=== PATIENT | female | born 1980 | race Caucasian/White ===

== ENCOUNTER 2017-01-02 02:17 | Emergency (ER) | payer MEDICAID ==
[~2017-01-02] VITALS: Ht 149.9 cm; Wt 77.1 kg
--- NOTE | 2017-01-02 02:17 | NUR ---
Patient was BIB [place] [facility] at this time.
[2017-01-02 02:20] VITALS: BP 166/123
--- NOTE | 2017-01-02 02:35 | NUR ---
Patient to bed 07. [place] [facility] at bedside.
--- NOTE | 2017-01-02 02:49 | NUR ---
Dr. Man evaluating patient at bedside.
[2017-01-02 02:50] VITALS: BP 166/123
--- NOTE | 2017-01-02 02:56 | NUR ---
PATIENT BIB [place] [facility] PRESENTS TO ED WITH HIGH BLOOD PRESSURE . PT STATES SHE IS CURRENTLY 19 WEEKS AND HAS HX OF ECLAMPSI AND PREECLAMPSIA . DENIES N/V/D; SKIN IS PINK/WARM/DRY; AAOX4 WITH EVEN AND STEADY GAIT; LUNGS CLEAR BL; HR EVEN AND REGULAR; PT DENIES ANY FEVER, CP, SOB, OR COUGH AT THIS TIME; PATIENT STATES PAIN OF 0/10 AT THIS TIME; VSS; PATIENT POSITIONED FOR COMFORT; HOB ELEVATED; BEDRAILS UP X2; BED DOWN. ER MD MADE AWARE OF PT STATUS.
--- NOTE | 2017-01-02 02:59 | NUR ---
LAB AT BEDSIDE.
[2017-01-02] MEDS ORDERED: METHYLDOPA 250 MG TAB PO ONE (03:05)
--- NOTE | 2017-01-02 03:14 | NUR ---
WAITING FOR MEDICATION TO BE BROUGHT BY CRYPTOLOGIST AT THIS TIME. ER PYXIS OUT OF MED
[2017-01-02] MEDS ORDERED: METHYLDOPA 250 MG TAB ONE (03:23)
[2017-02-13] MEDS ORDERED: PNV-DHA1 SGL PO (22:57)
== END 2017-01-02 03:14 ==
LOC: MED 02:17
DX: Z02.89 Encounter for other administrative examinations (principal); O16.1 Unspecified maternal hypertension, first trimester; Z3A.16 16 weeks gestation of pregnancy
CPT/HCPCS: 36415; 76801; 80053; 84702; 85025; 86900; 86901; 99285; Q0092

== ENCOUNTER 2017-02-13 22:40 | Observation (INO) | payer MEDICAID ==
[~2017-02-13] VITALS: Ht 149.9 cm; Wt 64.0 kg
[2017-02-13] MEDS ORDERED: PREN1SGL25 PO (22:57)
[2017-02-13] MEDS: LACTATED RINGERS 1,000 ML IV SCH (23:50)
[2017-02-14] MEDS ORDERED: LABETALOL 100 MG TAB ONE (00:04)
[2017-02-14] MEDS ORDERED: NALBUPHINE HYDROCHLORIDE 10 MG/ML VIAL ONE ×2 (00:05→11:10)
[2017-02-14 01:44] LABS: BASOPHILS # (AUTO) 0.1 K/uL (0.00-0.22); BASOPHILS % (AUTO) 1.3 % (0.0-2.0); EOSINOPHILS # (AUTO) 0.1 K/uL (0-0.4); EOSINOPHILS % (AUTO) 1.9 % (0.0-4.0); HEMATOCRIT 31.6 % (36-48); HEMOGLOBIN 10.1 g/dL (12.0-16.0); LYMPHOCYTES # (AUTO) 0.9 K/uL (2.5-16.5); LYMPHOCYTES % (AUTO) 12.1 % (20.5-51.1); MEAN CORPUSCULAR HEMOGLOBIN 29 pg (27-31); MEAN CORPUSCULAR HGB CONC 32 g/dL (33-37); MEAN CORPUSCULAR VOLUME 91 fL (80-94); MONOCYTES # (AUTO) 0.4 K/uL (0.8-1.0); MONOCYTES % (AUTO) 5.9 % (1.7-9.3); NEUTROPHILS % (AUTO) 78.8 % (42.2-75.2); RED BLOOD CELL COUNT(AUTO) 3.49 MIL/uL (4.20-5.40); RED CELL DISTRIBUTION WIDTH 14.3 % (11.6-13.7); WHITE BLOOD COUNT (AUTO) 7.5 K/uL (4.8-10.8)
[2017-02-14 01:45] LABS: APPEARANCE,URINE CLEAR (CLEAR); BILIRUBIN,URINE NEGATIVE (NEGATIVE); BLOOD, URINE 3+ (NEGATIVE); COLOR,URINE YELLOW (YELLOW); LEUKOCYTE ESTERASE ,URINE NEGATIVE (NEGATIVE); NITRITE, URINE NEGATIVE (NEGATIVE); PROTEIN,URINE 1+ (NEGATIVE); UGLUCOSE NEGATIVE (NEGATIVE)
[2017-02-14 01:54] LABS: AMPHETAMINE, URINE POS. ng/ml (NEG <=1000); BARBITURATE, URINE NEG. ng/ml (NEG <=200); BENZODIAZEPINE, URINE NEG. ng/mL (NEG <=200); CANNABINOID, URINE NEG. ng/mL (NEG <=50); COCAINE, URINE NEG. ng/mL (NEG <=300); OPIATE, URINE NEG. ng/mL (NEG <=2000); PHENCYCLIDINE SCREEN,URINE NEG. ng/mL (NEG <=25); RBC,URINE >100 /HPF (0-5); WBC,URINE 0-5 (RARE) /HPF (0-5)
[2017-02-14 01:55] LABS: BACTERIA,URINE OCCASSIONAL /HPF (None Seen); SQUAMOUS EPITHELIAL CELL,UR 0-3 (FEW) /LPF (0-3 (FEW))
[2017-02-14] MEDS ORDERED: AMPICILLIN 2,000 MG in NACL 0.9% 100 ML IV SCH (02:00)
[2017-02-14 02:04] LABS: PLATELET COUNT (AUTO) 52 K/uL (140-450)
[2017-02-14 02:29] LABS: INR 1.1 (0.8-1.2); PARTIAL THROMBOPLASTIN TIME 28.9 secs (22-35.6); PROTHROMBIN TIME 10.1 secs (10.8-13.4)
[2017-02-14] MEDS ORDERED: AMPICILLIN 2,000 MG VIAL ONE ×3 (02:41→10:26)
[2017-02-14] MEDS ORDERED: LABETALOL 100 MG/20 ML VIAL IV PRN (02:45)
[2017-02-14] MEDS ORDERED: NALBUPHINE 10 MG/ML AMP IVP SCH (02:45)
[2017-02-14] MEDS ORDERED: LABETALOL 200 MG TAB PO SCH ×2 (02:45→10:38)
[2017-02-14] MEDS ORDERED: LABETALOL 100 MG/20 ML VIAL ONE (02:59)
[2017-02-14 08:20] LABS: ANION GAP 12.7 (8-16); CARBON DIOXIDE 24.3 mmol/L (21-32)
[2017-02-14 08:21] LABS: ALBUMIN 2.6 g/dL (3.4-5.0); CALCIUM 7.5 mg/dL (8.5-10.1); CREATININE 0.6 mg/dL (0.6-1.3); TOTAL BILIRUBIN 0.8 mg/dL (0.0-1.0); TOTAL PROTEIN, SERUM 5.7 g/dL (6.4-8.2)
[2017-02-14] MEDS: LACTATED RINGERS 1,000 ML IV SCH (09:14)
[2017-02-14] MEDS ORDERED: ACETAMINOPHEN 325 MG TAB PO PRN (10:45)
[2017-02-14] MEDS ORDERED: LABETALOL 200 MG TAB ONE (10:46)
[2017-02-14] MEDS ORDERED: ACETAMINOPHEN 325 MG TAB ONE (10:51)
[2017-02-14] MEDS ORDERED: PROMETHAZINE 25 MG/ML VIAL IM PRN (11:05)
[2017-02-14] MEDS ORDERED: NALBUPHINE 10 MG/ML AMP IVP PRN (11:05)
[2017-02-14] MEDS ORDERED: PROMETHAZINE 25 MG/ML VIAL ONE (11:10)
[2017-02-14] MEDS ORDERED: LABETALOL 100 MG/20 ML VIAL IVP SCH (12:45)
== END 2017-02-14 13:30 | disposition short-term general hospital (02) ==
LOC: MLD 22:40
PROVIDERS: ADMIT Obstetrics & Gynecology; ATTEND Obstetrics & Gynecology
DX: O26.892 Other specified pregnancy related conditions, second trimester (principal); R10.9 Unspecified abdominal pain; R51 Headache; R03.0 Elevated blood-pressure reading, without diagnosis of hypertension; Z3A.22 22 weeks gestation of pregnancy
CPT/HCPCS: 36415; 51702; 76805; 80053; 80305; 81001; 85025; 85379; 85384; 85610; 85730; 86886; 86900; 86901; 96361; 96365; 96375; G0378; J0290; J2300; J2550; J3490; J7120; Q0092

== ENCOUNTER 2017-02-18 04:30 | Emergency (ER) | payer MEDICAID ==
[~2017-02-18 04:30] MED LIST: PNV-DHA1 SGL PO
--- NOTE | 2017-02-18 04:30 | NUR ---
Patient ambulated to bed 05.
--- NOTE | 2017-02-18 04:35 | NUR ---
Dr. Man evalauting patient at bedside.
--- NOTE | 2017-02-18 05:10 | NUR ---
PT.CANNOT WAIT FOR ULTRASOUND. DECIDED TO LEAVE AGAINST MEDICAL ADVICE. SHE SAID SHE WILL BE FOLLOWING UP AT [facility] AT 0700. AMA FORM SIGNED.
--- NOTE | 2017-02-18 05:15 | NUR ---
Jimena frankel in [facility] - 02/18/17 at 0515 by ARSEN [id number]--Patient ambulated to bed 05.
[2017-02-18 05:28] VITALS: BP 170/107
== END 2017-02-18 05:10 | disposition left against medical advice (07) ==
LOC: MED 04:30
DX: Z00.00 Encounter for general adult medical examination without abnormal findings (principal); I10 Essential (primary) hypertension

== ENCOUNTER 2017-12-17 06:50 | Emergency (ER) | payer MEDICAID, OTHER ==
[~2017-12-17] VITALS: Ht 149.9 cm; Wt 81.6 kg
[~2017-12-17 06:50] MED LIST changes: -PNV-DHA1 SGL PO; +PREN1SGL25 PO
[2017-12-17 07:02] VITALS: BP 150/100
--- NOTE | 2017-12-17 07:26 | NUR ---
PATIENT PRESENTS TO ED WITH C/O SORETHROAT, PAIN ON BOTH EARS , NASAL CONGESTION, AND RUNNY NOSE . PT STATES SHE HAS BEEN HAVING HER SYMPTOMS FOR A WEEK NOW . DENIES N/V/D; SKIN IS PINK/WARM/DRY; AAOX4 WITH EVEN AND STEADY GAIT; LUNGS CLEAR BL; HR EVEN AND REGULAR; PT DENIES ANY FEVER, CP, SOB, OR COUGH AT THIS TIME; PATIENT STATES PAIN OF 2/10 AT THIS TIME; VSS; PATIENT POSITIONED FOR COMFORT; HOB ELEVATED; BEDRAILS UP X2; BED DOWN. ER MD MADE AWARE OF PT STATUS.
[2017-12-17 07:42] VITALS: BP 153/101
--- NOTE | 2017-12-17 07:43 | NUR ---
Patient discharged with v/s stable. Written and verbal after care instructions given and explained. Patient alert, oriented and verbalized understanding of instructions. Ambulatory with steady gait. All questions addressed prior to discharge. ID band removed. Patient advised to follow up with PMD. Rx of TAMIFLU, MOTRIN, AND PROMETHAZINE given. Patient educated on indication of medication including possible reaction and side effects. Opportunity to ask questions provided and answered.
== END 2017-12-17 07:43 | disposition home or self-care (01) ==
LOC: MED 06:50
DX: J11.1 Influenza due to unidentified influenza virus with other respiratory manifestations (principal); I10 Essential (primary) hypertension
CPT/HCPCS: 99283

== ENCOUNTER 2020-02-26 00:19 | Emergency (ER) | payer SELFPAY ==
[~2020-02-26] VITALS: Ht 152.4 cm; Wt 77.1 kg
[2020-02-26 00:26] VITALS: BP 167/89
--- NOTE | 2020-02-26 00:35 | NUR ---
40 Y/O FEMALE PRESENTS TO ER WITH C/O LEFT EPIGASTRIC PAIN 02/15. PT STATES SHE WAS AT THE [facility] [place] AND PICKED A LARGE BASKET FULL OF CLOTHES, AND FELT A PULLING IN THE LEFT EPIGASTRIC REGION W/O RADIATION TO OTHER PARTS OF THE BODY. PT STATES SHE HAD TAKEN A TEST IN 12/2019 IT WAS POSITIVE, HOWEVER SHE HAD SOME BLEEDING IN 01/2020 AND ASSUMED SHE HAD A MISCARRIAGE. PT STATES SHE HAS HAD 3 MISCARRIAGES, AND 1 MEDICAL . DENIES NAUSEA, VOMITING, DIARRHEA, FEVER, SOB, COUGH. R/R EQUAL, AND UNLABORED. SIDERAIL X1, WILL CONTINUE TO MONITOR. DENIES PMH NKDA
[2020-02-26 01:05] LABS: BASOPHILS # (AUTO) 0.1 K/uL (0.00-0.22); BASOPHILS % (AUTO) 0.9 % (0.0-2.0); EOSINOPHILS # (AUTO) 0.1 K/uL (0-0.4); EOSINOPHILS % (AUTO) 1.4 % (0.0-4.0); HEMOGLOBIN 12.6 g/dL (12.0-16.0); LYMPHOCYTES # (AUTO) 1.4 K/uL (2.5-16.5); LYMPHOCYTES % (AUTO) 16.6 % (20.5-51.1); MEAN CORPUSCULAR HEMOGLOBIN 29 pg (27-31); MEAN CORPUSCULAR HGB CONC 34 g/dL (33-37); MEAN CORPUSCULAR VOLUME 84.9 fL (80-94); MONOCYTES # (AUTO) 0.7 K/uL (0.8-1.0); MONOCYTES % (AUTO) 7.9 % (1.7-9.3); NEUTROPHILS # (AUTO) 6.3 K/uL (1.8-7.7); NEUTROPHILS % (AUTO) 73.2 % (42.2-75.2); PLATELET COUNT (AUTO) 272 K/uL (140-450); RED BLOOD CELL COUNT(AUTO) 4.36 MIL/uL (4.20-5.40); RED CELL DISTRIBUTION WIDTH 12.7 % (11.6-13.7); WHITE BLOOD COUNT (AUTO) 8.6 K/uL (4.8-10.8)
[2020-02-26] MEDS ORDERED: NACL 0.9% 1,000 ML IV ONE (01:05)
[2020-02-26 01:14] LABS: ANION GAP 11.7 (8-16); CARBON DIOXIDE 27.9 mmol/L (21-32); CREATININE 0.9 mg/dL (0.6-1.3); POTASSIUM 4.6 mmol/L (3.5-5.1)
[2020-02-26 01:17] LABS: APPEARANCE,URINE SL CLOUDY (CLEAR); BILIRUBIN,URINE NEGATIVE (NEGATIVE); BLOOD, URINE 1+ (NEGATIVE); COLOR,URINE YELLOW (YELLOW); LEUKOCYTE ESTERASE ,URINE 2+ (NEGATIVE); NITRITE, URINE NEGATIVE (NEGATIVE); PH,URINE 5.5 (5.0-9.0); UGLUCOSE NEGATIVE (NEGATIVE)
--- NOTE | 2020-02-26 01:21 | NUR ---
PT RESTING QUIETLY IN BED. R/R EQUAL, AND UNLABORED. SIDERAIL X1, WILL CONTINUE TO MONITOR.
--- NOTE | 2020-02-26 01:25 | NUR ---
Ultrasound at bedside.
[2020-02-26 01:51] LABS: WBC,URINE 16-25 (MOD) /HPF (0-5)
[2020-02-26 02:36] VITALS: BP 167/89
--- NOTE | 2020-02-26 02:36 | NUR ---
Patient discharged with v/s stable. Written and verbal after care instructions given and explained. Patient alert, oriented and verbalized understanding of instructions. Ambulatory with steady gait. All questions addressed prior to discharge. ID band removed. Patient advised to follow up with PMD. Rx of TYLENOL, MACROBID given. Patient educated on indication of medication including possible reaction and side effects. Opportunity to ask questions provided and answered.
== END 2020-02-26 02:36 | disposition home or self-care (01) ==
LOC: MED 00:19
DX: O23.41 Unspecified infection of urinary tract in pregnancy, first trimester (principal); O16.1 Unspecified maternal hypertension, first trimester; F17.200 Nicotine dependence, unspecified, uncomplicated; Z3A.01 Less than 8 weeks gestation of pregnancy; Z79.899 Other long term (current) drug therapy
CPT/HCPCS: 36415; 76801; 80048; 81001; 81025; 84702; 85025; 86900; 86901; 87086; 99284; J7030

== ENCOUNTER 2023-04-11 13:14 | Emergency (ER) | payer MEDICAID ==
[~2023-04-11] VITALS: Ht 149.9 cm; Wt 85.3 kg
[2023-04-11 13:16] VITALS: BP 186/129
[2023-04-11] MEDS ORDERED: HYDROcodone/APAP 5/325 MG 1 TAB TAB PO ONE (13:50)
[2023-04-11] MEDS ORDERED: KETOROLAC 30 MG/ML VIAL IM ONE (13:50)
[2023-04-11] MEDS ORDERED: LIDOCAINE 5% 1 EA PATCH TP ONE (14:10)
--- NOTE | 2023-04-11 14:10 | NUR ---
PT CALLED IN AND OUTSIDE OF LOBBY. NO ANSWER
--- NOTE | 2023-04-11 14:42 | NUR ---
PER PT, PT DROPPED OFF AND WILL BE PICKED BY MOM
[2023-04-11 14:43] LABS: APPEARANCE,URINE CLEAR (CLEAR); BILIRUBIN,URINE NEGATIVE (NEGATIVE); BLOOD, URINE 1+ (NEGATIVE); COLOR,URINE YELLOW (YELLOW); LEUKOCYTE ESTERASE ,URINE NEGATIVE (NEGATIVE); NITRITE, URINE NEGATIVE (NEGATIVE); UGLUCOSE NEGATIVE (NEGATIVE)
[2023-04-11 14:53] LABS: RBC,URINE 0-5 /HPF (0-5)
[2023-04-11] MEDS ORDERED: LIDO1ADH38 TP (16:11)
[2023-04-11] MEDS ORDERED: METH-1681 PO (16:11)
[2023-04-11] MEDS ORDERED: IBUP-2213 PO (16:11)
[2023-04-11 16:17] VITALS: BP 148/88
--- NOTE | 2023-04-11 16:17 | NUR ---
Patient discharged with v/s stable. Written and verbal after care instructions FOR RADICULAR PAIN,DASH EATING PLAN AND HYPERTENSION given and explained. Patient alert, oriented and verbalized understanding of instructions. Ambulatory with steady gait. All questions addressed prior to discharge. ID band removed. Patient advised to follow up with PMD. Rx of IBUPROFEN,LIDOCAINE AND ROBAXIN given. Opportunity to ask questions provided and answered.
--- NOTE | 2023-04-11 16:42 | NUR ---
The patient's care was reviewed and supervised by [facility], RN.
[2023-04-12] MEDS ORDERED: LIDOCAINE 5% 1 EA PATCH TP SCH (09:00)
== END 2023-04-11 16:17 | disposition home or self-care (01) ==
LOC: MED 13:14
DX: M54.16 Radiculopathy, lumbar region (principal); I10 Essential (primary) hypertension; Z79.899 Other long term (current) drug therapy; Z79.1 Long term (current) use of non-steroidal anti-inflammatories (NSAID)
CPT/HCPCS: 72110; 81001; 81025; 96372; 99284; J1885

== ENCOUNTER 2024-05-15 21:15 | Emergency (ER) | payer MEDICAID ==
[~2024-05-15] VITALS: Ht 149.9 cm; Wt 85.7 kg
[~2024-05-15 21:15] MED LIST changes: +IBUP-2213 PO; +LIDO1ADH38 TP; +METH-1681 PO
[2024-05-15 21:48] VITALS: BP 182/115; PULSE 119; RESP 18; TEMP 98.3; O2SAT 99
[2024-05-15 23:10] LABS: APPEARANCE,URINE CLEAR (CLEAR); BILIRUBIN,URINE NEGATIVE (NEGATIVE); BLOOD, URINE 3+ (NEGATIVE); COLOR,URINE YELLOW (YELLOW); LEUKOCYTE ESTERASE ,URINE NEGATIVE (NEGATIVE); NITRITE, URINE NEGATIVE (NEGATIVE); PROTEIN,URINE NEGATIVE (NEGATIVE); UGLUCOSE NEGATIVE (NEGATIVE); UROBILINOGEN,URINE 0.2 EU/dL (0.2 - 1)
[2024-05-15 23:15] LABS: BACTERIA,URINE 10-30 (MOD) /HPF (None Seen); MUCUS,URINE 1+ /LPF (None Seen); SQUAMOUS EPITHELIAL CELL,UR 0-3 (FEW) /LPF (0-3 (FEW)); WBC,URINE 0-5 /HPF (0-5)
[2024-05-15 23:47] LABS: FLU A ANTIGEN negative (NEGATIVE); FLU B ANTIGEN NEGATIVE (NEGATIVE)
[2024-05-15] MEDS: NACL 0.9% 1,000 ML IV ONE (23:56)
[2024-05-15] MEDS ORDERED: KETOROLAC 15 MG/ML VIAL ONE (23:59)
[2024-05-16 00:01] LABS: BASOPHILS % (AUTO) 0.2 % (0.0-2.0); EOSINOPHILS # (AUTO) 0.1 K/uL (0-0.4); EOSINOPHILS % (AUTO) 0.7 % (0.0-4.0); HEMATOCRIT 39.5 % (36-48); HEMOGLOBIN 13.3 g/dL (12.0-16.0); LYMPHOCYTES # (AUTO) 0.5 K/uL (2.5-16.5); LYMPHOCYTES % (AUTO) 4.4 % (20.5-51.1); MEAN CORPUSCULAR HEMOGLOBIN 28 pg (27-31); MEAN CORPUSCULAR HGB CONC 34 g/dL (33-37); MEAN CORPUSCULAR VOLUME 82.9 fL (80-94); MONOCYTES # (AUTO) 0.4 K/uL (0.8-1.0); MONOCYTES % (AUTO) 3.5 % (1.7-9.3); NEUTROPHILS # (AUTO) 10.1 K/uL (1.8-7.7); NEUTROPHILS % (AUTO) 91.2 % (42.2-75.2); PLATELET COUNT (AUTO) 244 K/uL (140-450); RED BLOOD CELL COUNT(AUTO) 4.77 MIL/uL (4.20-5.40); WHITE BLOOD COUNT (AUTO) 11.1 K/uL (4.8-10.8)
[2024-05-16] MEDS: KETOROLAC 30 MG/ML VIAL IVP ONE (00:02)
[2024-05-16 00:13] LABS: CALCIUM 8.5 mg/dL (8.5-10.1); CREATININE 0.8 mg/dL (0.6-1.3)
[2024-05-16 00:21] LABS: ALBUMIN 3.6 g/dL (3.4-5.0); BILIRUBIN,DIRECT 0.2 mg/dL (0.0-0.3); TOTAL BILIRUBIN 0.8 mg/dL (0.0-1.0); TOTAL PROTEIN, SERUM 7.3 g/dL (6.4-8.2)
[2024-05-16] MEDS ORDERED: CEPH-588 PO (01:07)
[2024-05-16 01:19] VITALS: BP 160/98; PULSE 95; RESP 16; TEMP 98.3; O2SAT 98
== END 2024-05-16 01:19 | disposition home or self-care (01) ==
LOC: MED 21:15
DX: N39.0 Urinary tract infection, site not specified (principal); Z20.822 Contact with and (suspected) exposure to COVID-19; R00.0 Tachycardia, unspecified; I10 Essential (primary) hypertension; Z79.899 Other long term (current) drug therapy
CPT/HCPCS: 36415; 80048; 80076; 81001; 81025; 82948; 83690; 85025; 87086; 87426; 87804; 93005; 96361; 96374; 99285; J1885; J7030